=== PATIENT | male | born 1955 | race Two or more races ===

== ENCOUNTER 2018-01-10 08:32 | Emergency (ER) | payer OTHER ==
[~2018-01-10] VITALS: Ht 175.3 cm; Wt 81.6 kg
[~2018-01-10 08:32] MED LIST: PERCOCET 10-3251 TAB PO
== END 2018-01-10 12:47 | disposition home or self-care (01) ==
LOC: ER 08:32
DX: M54.41 Lumbago with sciatica, right side (principal)

== ENCOUNTER 2021-04-12 20:20 | Emergency (ER) | payer OTHER ==
[~2021-04-12] VITALS: Ht 152.4 cm; Wt 83.9 kg
[2021-04-12] MEDS ORDERED: KETO10TA2 PO (23:12)
[2021-04-12] MEDS ORDERED: ORPHENADRINE C100 MG PO (23:12)
== END 2021-04-12 23:21 | disposition home or self-care (01) ==
LOC: ER 20:20
DX: M54.2 Cervicalgia (principal); M62.838 Other muscle spasm

== ENCOUNTER → 2021-12-18 | Emergency (ER) | payer OTHER ==
[~2021-12-18] VITALS: Ht 177.8 cm; Wt 83.9 kg
[~2021-12-18] MED LIST changes: +DICLOFENAC POTA50 MG PO; +KETO10TA2 PO; +MEDROLPACK PO; +NORFLEX100MG PO; +ORPHENADRINE C100 MG PO
== END | disposition home or self-care (01) ==
LOC: ER 05:53
DX: M54.50 Low back pain, unspecified (principal)

== ENCOUNTER 2022-03-29 14:59 | Emergency (ER) | payer OTHER ==
[~2022-03-29] VITALS: Ht 175.3 cm; Wt 83.9 kg
[2022-03-29] MEDS ORDERED: CYCLOBENZAPRINE10 MG PO (18:16)
[2022-03-29] MEDS ORDERED: DICLOFENAC POTA50 MG PO (18:16)
== END 2022-03-29 18:29 | disposition home or self-care (01) ==
LOC: ER 14:59
DX: M54.42 Lumbago with sciatica, left side (principal)